=== PATIENT | male | born 1950 | race Caucasian/White ===

== ENCOUNTER → 2017-10-30 | Outpatient (CLI) | payer OTHER, MEDICARE ==
[~2017-10-30] MED LIST: GADAVIST IV PRN
--- NOTE | 2017-10-30 12:57 | DIAGNOSTIC IMAGING REPORT ---
PROSTATE MRI COMBO CLINICAL HISTORY: 67 years-old Male presenting with C61 Prostate cancer, R97.20 Elevated PSA. PSA 5.8 ng/mL. TECHNIQUE: Multisequence, multiplanar MR imaging of the prostate was performed before and after the administration of intravenous contrast. Additional postprocessing was performed on a separate [employer] workstation by the radiologist for 3-D volumetric segmentation of the prostate and contouring of region(s) of interest ([place]) for targeting. IV contrast: 13.5 mL of Gadavist. COMPARISON: None. FINDINGS: Prostate: The prostate measures 6.4 x 5.7 x 7.3 cm (DynaCAD prostate boundary segmentation volume 134 mL). PSA density (PSA/prostate volume): 0.043 ng/mL/mL. Severe changes of benign prostatic hyperplasia. Precontrast T1 weighted imaging demonstrates no evidence of intrinsic T1 hyperintensity to suggest hemorrhage. Diffusely heterogeneous and atrophic peripheral zone, which limits evaluation for lesions. Suspicious lesion(s) described below: Lesion (DynaCAD [place]) 1: Location: Right posterolateral peripheral zone at the apex. The lesion extends across the midline. Size: 19 mm (as measured on ADC for PZ lesion and T2WI for TZ lesion) T2W: 3. Heterogeneous signal intensity or noncircumscribed, rounded, moderate hypointensity. The lesion has an extended interface with the overlying capsule, which increases the risk of microinvasion. No definite extraprostatic extension, seminal vesicles invasion, or neurovascular bundle involvement. DWI: 5. Focal markedly hypointense on ADC and markedly hyperintense on high b-value DWI. DCE: Positive. Focal enhancement corresponding to a suspicious finding, earlier or contemporaneous with adjacent normal tissue. PI-RADS: 5. Clinically significant cancer is highly likely to present. Seminal vesicles atrophic. T2 hypointensity at the paramedian left seminal vesicle possibly an exophytic BPH nodule. Bladder: Bladder wall thickening likely indicating chronic outlet obstruction. Bowel: Visualized portion of the rectum normal. Peritoneum: No free fluid in the pelvis. Lymph nodes: No lymphadenopathy in the visualized portion of the pelvis. Vasculature: Iliac vessels patent. Abdominal wall: Normal. Osseous structures: Normal bone marrow signal intensity. IMPRESSION: 1. Suspicious lesion(s) segmented for targeted biopsy. 19 mm lesion in the right peripheral zone at the apex. PI-RADS: 5. Clinically significant cancer is highly likely to present. 2. Benign prostatic hyperplasia. Electronically signed by: Kraig Avelar M.D. 10/30/2017 12:56 PM Dictated Date/Time: 10/30/2017 12:44 PM
== END | disposition home or self-care (01) ==
LOC: C.MRIBC 10:26
PROVIDERS: ATTEND Urology
DX: C61 Malignant neoplasm of prostate (principal); R97.20 Elevated prostate specific antigen [PSA]

== ENCOUNTER → 2018-01-27 | Outpatient (CLI) | payer OTHER, MEDICARE | END | disposition home or self-care (01) | LOC: C.PATHSPEC 17:17 | PROVIDERS: ATTEND Urology | DX: C61 Malignant neoplasm of prostate (principal) ==